=== PATIENT | male | born 1985 | race Hispanic/Latino ===

== ENCOUNTER 2017-06-01 08:28 | Emergency (ER) | payer SELFPAY ==
[2017-06-01] MEDS ORDERED: Ibuprofen 600 MG TAB ONE (09:20)
--- NOTE | 2017-06-01 09:20 | RAD ---
THREE VIEWS OF THE LEFT SHOULDER: DATE: 06/01/17. COMPARISON: None. HISTORY: Pain, no recent trauma. FINDINGS: The clavicle appears intact. No widening of the acromioclavicular or coracoclavicular interspace. No fracture or dislocation. IMPRESSION: No acute findings. POS: [facility]
== END 2017-06-01 09:20 | disposition home or self-care (01) ==
LOC: MADERS 08:28
DX: M25.512 Pain in left shoulder (principal); B35.4 Tinea corporis; X50.1XXA Overexertion from prolonged static or awkward postures, initial encounter